=== PATIENT | male | born 1980 | race Caucasian/White ===

== ENCOUNTER 2018-03-13 11:44 | Day surgery (SDC) | payer BC ==
[2018-03-13 11:01] LABS: Absolute Lymphocytes (CBC) 3.4 K/uL (0.7-4.9); Absolute Monocytes 0.6 K/uL (0.1-1.3); Absolute Neutrophil 6.1 K/uL (1.8-8.0); Basophils % 0.8 % (0-1.3); Hematocrit 47.1 % (39.6-49.0); Lymphocytes % 32.5 % (15.3-44.8); MCH 31.2 pg (27.0-35.0); MCV 91.2 fL (80-100); MPV 9.2 fL (7.6-11.3); Monocytes % 5.3 % (3.3-12.3); RBC Red Blood Cell Count 5.17 M/uL (4.33-5.43)
[2018-03-13 11:04] LABS: Protime INR 0.97
[2018-03-13 11:23] LABS: Urine Appearance CLEAR; Urine Bilirubin NEGATIVE (NEG); Urine Blood 1+ (NEG); Urine Color YELLOW; Urine Glucose NEGATIVE (NEG); Urine Protein NEGATIVE (NEG); Urine Specific Gravity 1.015 (1.005-1.030); Urine Urobilinogen 0.2 mg/dL (0.2-1.0)
[2018-03-13 11:30] LABS: Urine Microscopic Reflex ORDER UMIC
[2018-03-13 11:33] LABS: Potassium 4.2 mEq/L (3.6-5.0)
[2018-03-13 11:37] LABS: Phosphorus 3.2 mg/dL (2.5-4.3); Uric Acid 8.1 mg/dL (4.8-8.7)
[2018-03-13 12:04] LABS: Urine Bacteria NONE SEEN /HPF (NONE SEEN); Urine Culture Reflex Order NOT NEEDED; Urine RBC <5 /HPF (NONE SEEN)
[2018-03-13] MEDS ORDERED: Ringers Lactate 1,000 ML IV ONE (12:09)
[2018-03-13] MEDS ORDERED: GENTAMICIN 100 MG/100 ML BAG 100 MG/100 ML BAG IV ONE (12:09)
--- NOTE | 2018-03-13 12:33 | RAD REPORT ---
EXAM DESCRIPTION: Donavan Mcnally (2 Views)03/13/2018 11:41 am CLINICAL HISTORY: Abdominal pain/preop COMPARISON: None FINDINGS: A few areas of scarring or subsegmental atelectasis are present within the left lung. Otherwise the lungs appear clear of acute infiltrate. The heart is normal size IMPRESSION: A few areas of scarring or subsegmental atelectasis are present within the left lung.
[2018-03-13] MEDS ORDERED: PROPOFOL 200 MG/20 ML VIAL IV ONE (13:12)
[2018-03-13] MEDS ORDERED: ONDANSETRON HCL 40 MG/20 ML VIAL ONE (13:13)
[2018-03-13] MEDS ORDERED: FENTANYL CITR 100 MCG/2 ML ONE (13:16)
[2018-03-13] MEDS ORDERED: MIDAZOLAM HCL 2 MG/2 ML INJ ONE (13:21)
--- NOTE | 2018-03-13 13:29 | RAD REPORT ---
EXAM DESCRIPTION: RAD - Abdomen 1 View (KUB) - 03/13/2018 11:51 am CLINICAL HISTORY: Abdomen pain. ICD N 20.0 FINDINGS: The bowel gas pattern is unremarkable. A 3 millimeter calculus lies adjacent to the left transverse process of L3 likely lying within the pr oximal left ureter. There is an equivocal 2 millimeter calculus within the lower pole left kidney.
--- NOTE | 2018-03-13 13:42 | EKG ---
Test Date: 2018-03-13 Test Time: 10:39:27 Lead Dental Assistant: BGG MEASUREMENT RESULTS: Intervals: Rate: 61 UT: 162 QRSD: 90 QT: 436 QTc: 438 [place]: P: 50 UT: 162 QRS: -2 T: 14 INTERPRETIVE STATEMENTS: Normal sinus rhythm with sinus arrhythmia Normal ECG No previous ECG available for comparison Electronically Signed On 03-13-18 13:40:35 CDT by Isidro Noble
[2018-03-13] MEDS ORDERED: KETOROLAC 10 MG TAB PO ONE (16:00)
== END 2018-03-13 16:04 | disposition home or self-care (01) ==
LOC: OR 11:44
PROVIDERS: ATTEND Urology
PROC: 0TF4XZZ Fragmentation in Left Kidney Pelvis, External Approach (ICD-10-PCS; principal; 2018-03-13 13:00)
DX: N20.0 Calculus of kidney (principal); F17.200 Nicotine dependence, unspecified, uncomplicated; Z83.3 Family history of diabetes mellitus; Z82.49 Family history of ischemic heart disease and other diseases of the circulatory system; Z82.5 Family history of asthma and other chronic lower respiratory diseases
CPT/HCPCS: 36415; 50590; 71046; 74018; 80048; 81003; 81015; 84100; 84550; 85025; 85610; 85730; 87086; 87088; 93005; J1580; J2250; J2405; J3010